=== PATIENT | female | born 1965 | race Caucasian/White ===

== ENCOUNTER 2024-11-01 08:45 | Day surgery (SDC) | payer BC ==
[2024-10-19 11:50] VITALS: BP 150/95
[~2024-11-01] VITALS: Ht 167.6 cm; Wt 63.9 kg
[~2024-11-01 08:45] MED LIST: ALLER-TEC10 MG PO; CEFAZOLIN SODIUM 2 GM/20 ML SYR IV SCH; CEFAZOLIN SODIUM 2 GM/20 ML SYR ONE; CYMBALTA20 MG PO; DICLOFENAC POTA50 MG PO; DULOXETINE HCL 60 MG CAP PO SCH; EXCEDRIN MIGRA1 EAC2 PO; IBLOOD GLUCOSE TEST STRIP 1 EA TEST VI PRN; IBU-200200 MG PO; INTRA-ARTICULAR ANALGESIC INJECTION XX SCH; LACTATED RINGER'S 1,000 ML IV SCH; LIDOCAINE HCL 1% 5 ML SDV INJ ONE; MULTIPLE VITAM1 EAC2 PO; OXYCODONE HCL 5 MG TAB PO SCH; PANTOPRAZOLE SODIUM 40 MG TABEC PO SCH; ROPIVACAINE IN 0.9% SOD CHL/PF 545 ML ELS.PMP.HR IRRIGATION SCH; Ropivacaine HCl 20 MG/10 ML AMP ONE; TRANEXAMIC ACID IN NACL,ISO-OS 1,000 MG/100 ML PIGGYBACK IV SCH; TYLENOL325 MG PO; VITAMIN C500 M5 PO; VITAMIN D325 MCG PO; ondansetron HCL 4 MG TAB PO SCH
[2024-11-01 09:10] VITALS: BP 148/84
[2024-11-01] MEDS ORDERED: TYLENOL PM EXS1 EACH PO (09:15)
[2024-11-01] MEDS ORDERED: SODIUM CHLORIDE 0.9% 20 ML IV ONE (09:41)
[2024-11-01] MEDS ORDERED: Ropivacaine HCl 0.5% 30 ML VIAL ONE (09:41)
[2024-11-01] MEDS ORDERED: dexmedeTOMIDine HCl 200 MCG/2 ML VIAL ONE (09:41)
[2024-11-01] MEDS ORDERED: DEXAMETHASONE SOD PHOS 4 MG/ML VIAL ONE (09:41)
[2024-11-01] MEDS ORDERED: MIDAZOLAM HCL 2 MG/2 ML VIAL ONE (09:43)
[2024-11-01] MEDS ORDERED: LIDOCAINE HCL 2% 5 ML SDV ONE ×2 (09:43→10:14)
[2024-11-01] MEDS ORDERED: fentaNYL citrate 100 MCG/2 ML VIAL ONE (10:10)
[2024-11-01] MEDS ORDERED: propofoL 200 MG/20 ML VIAL ONE ×2 (10:14→11:30)
[2024-11-01] MEDS ORDERED: KETOROLAC TROMETHAMINE 30 MG/ML VIAL IV PRN (11:15)
[2024-11-01] MEDS ORDERED: OXYCODONE HCL 5 MG TAB PO PRN (11:15)
--- NOTE | 2024-11-01 11:41 | NUR ---
1046-TXA INFUSION COMPLETE. PT NOTED WITH SATS DECREASED TO 83% ON RA. PT INSTRUCTED TO TAKE DEEP BREATHS AND ADDITIONAL PILLOW PROVIDED. SATS QUICKLY RISE TO 95% OR GREATER ON RA. 1055-SATS CONTINUE TO DECREASE TO LOW 80'S WHEN NOT ENGAGED IN DEEP BREATHING AND NOTED TO BE DOZING. 2L/NC PLACED. SATS STABILIZED IN MID TO UPPER 90'S. RR EVEN AND UNLABORED.
[2024-11-01] MEDS ORDERED: LACTATED RINGER'S 1,000 ML IV ONE (11:47)
[2024-11-01] MEDS ORDERED: TRANEXAMIC ACID 1,000 MG/10 ML AMP ONE (12:20)
[2024-11-01] MEDS ORDERED: KETOROLAC TROMETHAMINE 30 MG/ML VIAL ONE (12:22)
[2024-11-01] MEDS ORDERED: DICLOFENAC SODI75 MG PO (12:50)
[2024-11-01] MEDS ORDERED: OXYCODONE HCL5 MG PO (12:50)
[2024-11-01] MEDS ORDERED: SENNA LAX8.6 MG PO (12:51)
[2024-11-01] MEDS ORDERED: DULOXETINE HCL30 MG PO (12:51)
[2024-11-01] MEDS ORDERED: ASPIRIN EC325 MG PO (12:52)
[2024-11-01] MEDS ORDERED: TRANEXAMIC ACID IN NACL,ISO-OS 1,000 MG/100 ML PIGGYBACK IV SCH ×2 (13:30→15:30)
[2024-11-01 13:35] VITALS: BP 143/84
--- NOTE | 2024-11-01 13:43 | NUR ---
11/01/24 1343 Salud Dyer 1301 PT ARRIVED IN PACU WIDE AWAKE AND TALKING TO STAFF. 1310 XRAY OF R KNEE DONE. 1315 SITTING UP IN BED SIPPING ON WATER. NO C/O'S. 1335 TO DS. REPORT GIVEN TO CHALINO.
--- NOTE | 2024-11-01 14:18 | NUR ---
1335-PT ARRIVED BACK TO DS AAOX3, ANSWERING QUESTIONS APPROPRIATELY, AND ABLE TO MAKE NEEDS KNOWN. PT NOTED TO BE ON ROOM AIR AND DRINKING WATER. VS TAKEN. IV SITE ASSESSED, PATENT, AND LR INFUSING PER ORDERS. SURGICAL SITE OBSERVED WITH PACKAGE LINER AND PACU PROVIDED REPORT ON PT. DRSG APPEARS CDI. ON-Q-PUMP INTACT AND SET AT 4. PT DENIES NAUSEA AND PAIN WHEN ASKED. CRYO CUFF IN PLACE TO R KNEE. YSABEL HOSE, FOOT PUMPS, AND HEEL FLOATS ALSO PRESENT. PT WITH R KNEE ELEVATED SLIGHTLY ABOVE HIP LEVEL. SPINAL WORN OFF. PT ABLE TO FEEL BOTTOM OF FOOT AND WIGGLE TOES. PT PROVIDED APPLESAUCE AND LUNCH ORDER TAKEN FROM PT. BED IN LOW POSITION, WHEELS LOCKED, BILAT RAILS IN PLACE, AND CALL LIGHT WITHIN REACH. ALL QUESTIONS ANSWERED. PT PROVIDED PERSONAL BELONGINGS W/IN REACH. TXA DUE AT 1530 PER PACKAGE LINER REPORT. PHARMACY NOTIFIED TO RETIME. 1355-PT FINISHED APPLESAUCE AND REPORTS NO N/V. LUNCH ORDER PLACED FOR GRILLED CHEESE AND CHICKEN NOODLE SOUP. 1405-PTS LUNCH ARRIVED AND TAKEN INTO PT. HOB ELEVATED AT APPROX 60 DEGREES. COFFEE BROUGHT INTO PT AT HER REQUEST. CALL LIGHT WIHTIN REACH. BED IN LOW POSITION, WHEELS LOCKED. BILAT RAILS IN PLACE.
[2024-11-01 14:35] VITALS: BP 145/78
--- NOTE | 2024-11-01 14:55 | NUR ---
1433-INTO PTS ROOM TO ANSWER CALL LIGHT. PT REPORTS URGE TO VOID. BSC OBTAINED AND PT TRASNFERRED FROM BED TO BSC WITH USE OF FWW AND RN SBA FOR SAFETY. 1440-PT ABLE TO VOID APPROX 950ML OF PALE, CLR, YELLOW URINE. PT TRASNFERRED BACK TO BED WITH USE OF FWW AND RN ASSIST FOR SAFETY. VS TAKEN. IV SITE ASSESSED. SURGICAL SITE OBSERVED AND REMAINS CDI. PT DENIES NAUSEA AND REPORTS PAIN IN R KNEE AT 5/10. PT WOULD LIKE TO TAKE PAIN MEDICATION SO SHE WILL BE COMFORTABLE ENOUGHT TO WORK WITH PHYSICAL THERAPY LATER ON. CMS REMAINS INTACT. 1455-PO PAIN MEDS GIVEN PER EMAR. CALL LIGHT WITHIN PT REACH. BED IN LOW POSITON, WHEELS LOCKED, BILAT RAILS IN PLACE. ICE WATER REFILLED. ALL QUESTIONS ANSWERED.
[2024-11-01] MEDS ORDERED: GABAPENTIN 300 MG CAP PO SCH (15:00)
[2024-11-01] MEDS ORDERED: CEFAZOLIN SODIUM 2 GM/20 ML SYR IV SCH (15:00)
[2024-11-01 15:35] VITALS: BP 138/78
--- NOTE | 2024-11-01 16:00 | NUR ---
1530-INTO PTS ROOM FOR ROUTINE REASSESSMENT AND TO START PTS TXA PER ORDERS. IV SITE ASSESSED. VS TAKEN. SURGICAL SITE OBSERVED AND NO ACUTE CHANGES NOTED FROM PREVIOUS ASSESSMENT. PT REPORTS PAIN IMPROVMENT WITH MEDS AND NOW RATES PAIN IN R KNEE AT 2/10. PT CONT TO DENY NAUSEA. CMS REMAINS INTACT. ALL QUESTIONS ANSWERED. BED IN LOW POSITION, CALL LIGHT WITHIN PT REACH. 1550-TXA COMPLETED AND SCHEDULED ANCEF DOSE GIVEN. IV SL'D. 1600-PT INTO SEE PT FOR EVAL.
[2024-11-01 16:50] VITALS: BP 138/76
--- NOTE | 2024-11-01 17:22 | NUR ---
1630-PT BACK TO AFTER WORKING WITH PHYSICAL THERAPY. THERAPIST REPORTS PT PASSED PHYSICAL THERAPY EVAL. PT SISTER IN ROOM WITH HER. PT OKAY'ED TO DRESS. CALL LIGHT WITHIN PT REACH WELL PERSONAL BELONGINGS. 1700-CALL PLACED TO DR. GUILLORY TO NOTIFY OF PT PASSING PHYSICAL THERAPY AND ANCEF DOSE WAS GIVEN WELL ALL OTHER CRITERIA MET. VERBAL ORDER RECEIVED FOR PT TO DISCHARGE. 1705-INTO PTS ROOM FOR DC EDUCATION. PTS SISTER IN ROOM AT BEDSIDE WELL. SURGICAL SITE OBSERVED POST-AMBULATION AND REMAINS CDI. PT GIVEN DRSG CHANGE DATE, POST OP VISIT APPT DATE, AND DR. GUILLORY AFTER HOURS PHONE NUMBER. PT ALSO GIVEN IS AND VERBALIZES UNDERSTANDING OF HOW TO USE. 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 NEW RX'S, WOUND CARE, CRYO CUFF, ELEVATION, ON-Q-PUMP, ECT ALL GONE OVER WITH PT. BOTH PT AND HER SISTER VERBALIZE UNDERSTANDING. ALL QUESTIONS ANSWERED. 1722-IV REMOVED. TIP APPEARS INTACT. PRESSURE DRSG APPLIED WITH GAUZE AND COBAN. SISTER OUT TO VEHICLE WITH PTS PERSONAL BELONINGS.
--- NOTE | 2024-11-01 18:25 | NUR ---
1725-PT DISCHARGED FROM DS VIA WC TO PASSENGER SIDE OF [employer] VEHICLE. ALL PERSONAL BELONINGS TAKEN WITH PT.
[2024-11-01] MEDS ORDERED: SENNOSIDES 1 TAB PO SCH (21:00)
[2024-11-02] MEDS ORDERED: DICLOFENAC SOD 75 MG TABEC PO SCH (08:00)
[2024-11-02] MEDS ORDERED: DULOXETINE HCL 30 MG CAP PO SCH (09:00)
--- NOTE | 2024-11-05 07:04 | OR ---
[facility] [address] [place], [place] [address] Signed DATE OF OPERATION: 11/01/2024 SURGEON: Jason White MD PREOPERATIVE DIAGNOSIS: Severe degenerative joint disease, right knee. POSTOPERATIVE DIAGNOSIS: Severe degenerative joint disease, right knee. PROCEDURE PERFORMED: Right total knee arthroplasty with Vince. ALLERGY AND IMMUNOLOGY CHIEF: Joleen Doss PA-C. Joleen was present and critical for all portions of procedure. ANESTHESIA: Spinal. BLOOD LOSS: 175 mL. TOURNIQUET TIME: Zero. IMPLANTS: Mala Triathlon size 3, 12 mm polyethylene and a 32 mm patella. BRIEF HISTORY: Gray is a 59-year-old female with progressive worsening of osteoarthritis. Nonresponsive to nonoperative means of treatment. Risks and benefits of operative treatment were discussed and she elected to proceed. DESCRIPTION OF PROCEDURE: Once consent was obtained she was taken to the operating room. After adequate anesthesia she was placed on operating room table. All downside pressure points were well padded. Hip bump was placed. The leg was prepped and draped in a standard sterile fashion. The leg was incised longitudinally and carried through skin and subcutaneous tissue. The medial and lateral skin flaps were developed and low mid vastus arthrotomy Electronically Signed By: JASON WHITE MD 11/05/24 0704 PATIENT NAME: GRAY WILLIAM BLAYNE OPERATIVE REPORT DATE OF : 61 REPORT #: [id number] PHYSICIAN: JASON WHITE MD PCP: KATHRYN NGUYỄN PAC REPORT IS CONFIDENTIAL AND NOT TO BE RELEASED WITHOUT AUTHORIZATION [facility] [address] [place], [place] [address] Signed was performed. The infrapatellar fat pad was excised and the anterior horns of menisci were transected. The MCL was elevated as a sleeve around the posteromedial corner. The navigation guide was placed in the distal femur and proximal tibia. The leg was then registered with computer, followed by the fine anatomic points of the knee. The full ligamentous poses were then taken and mild adjustments were made to the prosthesis on the computer. The robot was then brought in, the four straight cuts were made along with the two angle cuts. Care was taken to protect the patellar tendon and MCL. The bony remnants removed as were any remaining osteophytes. The posterior osteophytes removed off the femur. No posterior release was performed. The trials were then positioned initially with 11 and 12 poly, which provided good stability and range of motion 0 to 130 degrees of flexion. The patella was cut, sized and drilled for 32 mm patella. The distal femoral drill holes were completed. The proximal tibia was finished using the keel punch and the drill. The implants were obtained. The tibia was impacted into position until it was flushed with the bone cut. The polyethylene was snapped into position and the femur was impacted. The knee was then extended and loaded. The patella was clamped into position until it was seated flush. Patellar tracking was noted to be good. The wound was copiously irrigated with one bottle of Surgiphor followed by normal saline. Periarticular soft tissues were injected with 100 mL ropivacaine and Toradol mixture. The On-Q pain pump was percutaneously placed into the adductor canal from the suprapatellar pouch. The arthrotomy was then closed using a combination of #2 FiberWire, #2 Stratafix. Subcutaneous tissue was closed using 0 Stratafix. The skin was closed with 3-0 Stratafix. Wound was dressed with Acticoat-7, ABDs and Aime wrap. She tolerated the procedure well. All sponge, needle, and instrument counts were correct. Jason White MD BA/MODL /[id number] Copies: ~ Electronically Signed By: JASON WHITE MD 11/05/24 0704 PATIENT NAME: GRAY WILLIAM OPERATIVE REPORT DATE OF : 61 REPORT #: [id number] PHYSICIAN: JASON WHITE MD PCP: KATHRYN NGUYỄN PAC REPORT IS CONFIDENTIAL AND NOT TO BE RELEASED WITHOUT AUTHORIZATION
== END 2024-11-01 17:25 | disposition home or self-care (01) ==
LOC: DS 08:45
PROVIDERS: ATTEND Specialist
PROC: 0SRC0JZ Replacement of Right Knee Joint with Synthetic Substitute, Open Approach (ICD-10-PCS; principal; 2024-11-01 11:30)
DX: M17.11 Unilateral primary osteoarthritis, right knee (principal); Z79.899 Other long term (current) drug therapy; Z90.49 Acquired absence of other specified parts of digestive tract; Z90.710 Acquired absence of both cervix and uterus
CPT/HCPCS: 01400; 64447; 64450; 73560; 76942; 97161; A9270; C1713; C1776; J0690; J1100; J1885; J2003; J2250; J2704; J2795; J3010; J7121; J7999